=== PATIENT | female | born 1995 | race Caucasian/White ===

== ENCOUNTER 2023-02-06 19:47 | Outpatient (REF) | payer OTHER, SELFPAY ==
[2023-02-12 15:08] LABS: Age Gdln ACOG Testing Note (.); IGP, rfx Aptima HPV ASCU Note (.)
== END 2023-02-06 19:48 | disposition home or self-care (01) ==
LOC: LAB 19:47
PROVIDERS: Visit Provider Obstetrics & Gynecology
DX: Z01.419 Encounter for gynecological examination (general) (routine) without abnormal findings (principal)
CPT/HCPCS: G0145

== ENCOUNTER 2024-11-03 19:59 | Outpatient (REF) | payer OTHER, SELFPAY ==
[2024-11-07 12:08] LABS: Age Gdln ACOG Testing Note (.); IGP, rfx Aptima HPV ASCU Note (.)
== END 2024-11-03 20:00 | disposition home or self-care (01) ==
LOC: LAB 19:59
PROVIDERS: Visit Provider Nurse Practitioner Family
DX: Z01.419 Encounter for gynecological examination (general) (routine) without abnormal findings (principal)
CPT/HCPCS: 88175